=== PATIENT | female | born 1995 | race African-American/Black ===

== ENCOUNTER 2018-05-17 17:45 | Emergency (ER) | payer OTHER ==
[2018-05-17 19:04] LABS: Bilirubin Small (Negative); Blood, Urine Large (Negative); Clarity TURBID (Clear); Glucose, Urine (Dipstick) Negative (Negative); Leukocyte Moderate (Negative); Nitrite Positive (Negative); Protein, Urine (Dipstick) 300 mg/dL (Neg-Trace); Specific Gravity, Urine 1.032 (1.002-1.036)
[2018-05-17 19:05] LABS: Pregnancy Test - Urine (BHCG) Negative (Negative); Pregu Control Background? CLEAR/WHITE (CLR/WHITE); Pregu Control Bar Appear? YES (CONTROL BAR); Specific Gravity 1.032 (1.002-1.036)
[2018-05-17 19:07] LABS: Bacteria/HPF 1+ HPF (None Seen); RBC/HPF GREATER THAN 50-TNTC HPF (0-3)
[2018-05-17 19:08] LABS: Hyaline Casts/LPF 0-3 HYALINE CAST LPF (0-3 Hyaline); Manual Microscopic Reviewed? No Path Casts Seen; Pathc Cast-AUWi Flag 3.53 (0-2.49)
== END 2018-05-17 19:22 | disposition home or self-care (01) ==
LOC: ERS 17:45
DX: N39.0 Urinary tract infection, site not specified (principal)
CPT/HCPCS: 81003; 81015; 81025; 99283

== ENCOUNTER 2018-06-23 22:38 | Emergency (ER) | payer OTHER | END 2018-06-23 23:45 | disposition home or self-care (01) | LOC: ERS 22:38 | DX: N64.4 Mastodynia (principal) | CPT/HCPCS: 99283 ==

== ENCOUNTER 2018-07-29 10:54 | Emergency (ER) | payer OTHER ==
[2018-07-29 11:55] LABS: Bilirubin Negative (Negative); Blood, Urine Negative (Negative); Clarity CLOUDY (Clear); Glucose, Urine (Dipstick) Negative (Negative); Leukocyte Moderate (Negative); Nitrite Negative (Negative); Protein, Urine (Dipstick) Trace mg/dL (Neg-Trace); Specific Gravity, Urine 1.029 (1.002-1.036)
--- NOTE | 2018-07-29 11:55 | ULT ---
US Pelvic W Doppler HISTORY: Pelvic pain and cramping COMPARISON: None TECHNIQUE: Multiple grayscale and color Doppler images were obtained in a transabdominal and transvag inal pelvic ultrasound. Spectral analysis of the Doppler waveforms of the ovaries were performed. FINDINGS: There is an intrauterine gestation, which by sonographic imaging corresponds to a 6 week 1 day gestat ional age. cardiac activity is documented at 124 bpm. Gestational sac, with internal yolk sac and pole present No free fluid is present. RIGHT OVARY: Normal flow, without focal mass. LEFT OVARY: Normal flow, without focal mass. IMPRESSION: Early live intrauterine gestation, as above. Recommend continued age-appropriate imaging follow-up.
[2018-07-29 12:07] LABS: Bacteria/HPF 1+ HPF (None Seen); Pathc Cast-AUWi Flag 0.27 (0-2.49); RBC/HPF 0-3 HPF (0-3); Squamous Epithelial 0-3 HPF (0-3)
[2018-07-29 12:08] LABS: Hyaline Casts/LPF 0-3 HYALINE CAST LPF (0-3 Hyaline)
[2018-07-29 12:14] LABS: Hemoglobin 8.1 g/dL (12.0-16.0); Mean Corpuscular HGB CONC 29.8 g/dL (32.0-36.0); Mean Corpuscular Hemoglobin 19.7 pg (27.0-31.0); Mean Corpuscular Volume 66.3 fL (78.0-98.0); Mean Platelet Volume 11.4 fL (7.4-10.4); Platelet Count 268 thou/uL (130-400); RBC Distribution Width 17.8 % (11.5-14.5); Red Blood Cell (RBC) Count 4.09 mill/uL (4.20-5.40); White Blood Cell (WBC) Count 6.4 thou/uL (4.8-10.8)
[2018-07-29 12:47] LABS: #Lymphocytes 0.6 thou/uL (1.20-3.40); #Monocytes 0.4 thou/uL (0.11-0.59); #Neutrophils 5.4 thou/uL (1.40-6.50); %Basophils 0.3 % (0.0-1.0); %Eosinophils 0.1 % (0.0-10.0); %Lymphocytes 9.1 % (21.0-51.0); %Monocytes 6.5 % (0.0-10.0); %Neutrophils 84.1 % (42.0-75.0); Anisocytosis SLIGHT = 6-15 cells (100X) (0-5/hpf); Hypochromia SLIGHT = 6-15 cells (100X) (0-5/hpf); MDiff Complete? YES; Microcytosis SLIGHT = 6-15 cells (100X) (0-5/hpf); Platelet Morphology Comment Appears Adequate; Poikilocytosis SLIGHT = 6-15 cells (100X) (0-5/hpf)
== END 2018-07-29 13:25 | disposition home or self-care (01) ==
LOC: ERS 10:54
DX: O23.41 Unspecified infection of urinary tract in pregnancy, first trimester (principal); Z3A.01 Less than 8 weeks gestation of pregnancy
CPT/HCPCS: 36415; 76856; 81003; 81015; 84702; 85025; 86900; 86901; 93976

== ENCOUNTER 2018-10-01 11:42 | Day surgery (SDC) | payer OTHER ==
[2018-10-01] MEDS ORDERED: Acetaminophen 500 MG TAB PO SCH ×2 (12:15→12:30)
[2018-10-01 12:17] VITALS: BP 93/57; TEMP 98.9
[2018-10-01 12:18] VITALS: BMI 20.2
[2018-10-01] MEDS ORDERED: Iron Sucrose Complex 500 MG in Sodium Chloride 0.9% 250 ML 250 ML IVPB SCH (12:30)
--- NOTE | 2018-10-01 13:36 | PDOC.FPROB ---
FMR OB H&P: HPI - History of Present Illness Chief Complaint: Iron infusion Indentification: 23 year old at 15.0 wks by reported due date of 2019 History of Present Illness: 23 year old at 15.0 wks with reported DAPHNE 03/25/2019 presents for scheduled iron infusion. Patient reports that her Hg was around 7.5 in clinic. She reports no complications thus far in . Patient denies vaginal bleeding, vaginal discharge, LoF, abdominal pain. 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: Hx of chlamydia and gonorrhea in past s/p treatment Hx of D&C in 2016 - Surgical History Sx History: D&C - Social History Social History: Denies tobacco, alcohol, or drug use - Family History Family History: Denies any significant FH FMR OB H&P: Medications - Current Home Medications: Medication Instructions Recorded Confirmed Type Vit,Calc76/Iron/Folic 1 tablet PO DAILY 01/06/16 10/01/18 History [Prenatabs Rx Tablet] Allergies/Adverse Reactions: Allergies Allergy/AdvReac Type Severity Reaction Status Date / Time Latex, Natural Rubber AdvReac Mild Rash Verified 03/12/16 12:38 FMR OB H&P: ROS - Review of Systems General: denies: fever/chills, weight/appetite/sleep changes Eyes: denies: vision changes ENT: denies: nasal congestion, rhinorrhea Cardiovascular: denies: chest pain, edema Respiratory: denies: cough, congestion, shortness of breath Gastrointestinal: denies: abdominal pain, nausea, vomiting, diarrhea Genitourinary (Female): denies: dysuria, vaginal discharge, vaginal bleeding Musculoskeletal: denies: pain, stiffness Neurologic: denies: numbness, syncope, weakness Integumentary: denies: itching, lesions Hematologic/Lymphatic: denies: prolonged or excessive bleeding Psychological: denies: depression, anxiety FMR OB H&P: Vital Signs - Maternal Vital signs: Vital Signs - First Documented Temp Pulse Resp BP 98.9 F 81 16 93/57 L 10/01/18 12:04 10/01/18 12:04 10/01/18 12:04 10/01/18 12:04 FMR OB H&P: Physical Exam - Physical Exam General: NAD, awake, alert and oriented HEENT: EOMI, MMM, grossly normal vision, grossly normal hearing Heart: RRR, no murmurs/rubs/gallops General: CTAB, no respiratory distress Abdomen: soft, gravid, non-tender Musculoskeletal: pulses present, FROM in all four extremities Neurological: no tremor, no focal deficit Skin: no rash, capillary refill <2 seconds Lymphatic: no unusual bruising or bleeding Psychiatric: intact recent and remote memory, good judgement and insight FMR OB H&P: A/P - Problem List (1) Anemia affecting Status: Acute Code(s): O99.019 - ANEMIA COMPLICATING , UNSPECIFIED TRIMESTER Disposition: 23 year old at 15.0 wks presents for iron transfusion Anemia affecting - Hg reportedly appx 7.5 in clinic - Iron transfusion today - PO iron supplementation - Routine follow up at [facility] [place] Dispo: D/c home after iron transfusion Discussion: Date/Time: 10/01/18 3487 This H&P was discussed with Dr. Park who agrees with the above documentation and plan. Signature: Vani Smith DO PGY-3 Addendum - Attending - Attending Attestation Date/Time: 10/03/18 3542 I personally evaluated the patient and discussed the management with Dr. Smith on 10/01. I agree with the History, Examination, Assessment and Plan documented above with any addition or exceptions noted below.
[2018-10-01] MEDS ORDERED: Sodium Chloride 0.9% 1,000 ML IV SCH (13:45)
== END 2018-10-01 17:30 | disposition home health service (06) ==
LOC: L&D/OP 11:42
PROVIDERS: ATTEND Family Medicine
DX: O99.012 Anemia complicating pregnancy, second trimester (principal); Z87.59 Personal history of other complications of pregnancy, childbirth and the puerperium; Z3A.15 15 weeks gestation of pregnancy
CPT/HCPCS: 96361; 96365; 96366; 99282; J1756; J7050

== ENCOUNTER 2019-01-26 11:02 | Day surgery (SDC) | payer OTHER ==
[2019-01-26 11:26] VITALS: BMI 20.6
[2019-01-26] MEDS ORDERED: hydrALAZINE 20 MG/ML VIAL SLOW IVP PRN (12:33)
--- NOTE | 2019-01-26 13:00 | PDOC.LDHP ---
Labor and Delivery H&P Chief complaint: other (RUQ Pain) HPI: Ms. De Jesus is a 23 y/o who presents to L&D @ 31W dated by 1st trimester US for RUQ pain. She states that the pain is sharp in nature and has been intermittent for the past several weeks. It is often fleeting and lasts only a 1 -3 minutes before resolving spontaneously. She denies any radiation, and states that when she feels the pain she "wants to go to sleep". She denies being in pain at the time of evaluation. The pain is not associated with position or meals and typically resolves spontaneously. She has no prior history of gallbladder, pancreatic or appendix dysfunction. She denies any recent falls, trauma, heavy lifting, fevers, chills, N/V/D, anorexia, dysuria, known STI or vaginal lesions / pruritis. She states that she has not noticed a loss of movement and denies vaginal bleeding, or loss of fluids. Dating criteria: first trimester ultrasound Grav: 3 Para: 1 OB History Details: Hx significant for prior miscarriage "early in " Current complications: other (Anemia, previously received Iron Transfusion) Abnormal US findings: No Current medications: pre- vitamins, iron Previous surgical history: none Allergies/Adverse Reactions: Allergies Allergy/AdvReac Type Severity Reaction Status Date / Time Latex, Natural Rubber AdvReac Mild Rash Verified 01/26/19 11:27 Social history: none - Physical Exam General: NAD, resting Heart: RRR Lungs: nonlabored breathing Abdomen: NTTP Extremeties: no edema FHT: category 1, variability present Stebbins contractions every: None seen on rhythm strip - OB Labs Blood type: unknown RH: unknown Antibody Screen: unknown HIV: negative RPR: negative HEPSAg: negative GBS: unknown Urine drug screen: not done Additional Labs: CBC, CMP and UA pending - Assessment 23 y/o female who presents to L&D @ 31W by 1st trimester US with sub-acute RUQ. - Plan Plan: other -: 1. RUQ Pain, likely MSK -Patient is currently not in pain while on L&D -HPI and ROS not indicative of gallbladder, appendix or pancreatic dysfunction -Maternal VSS with unremarkable physical exam - negative Guzman's sign, negative CVA tenderness, no TTP -FHTs in the 150s with no decels or CTX - no loss of fluid or vaginal bleeding -CBC: Pending -CMP: Pending -UA: Pending -Continue to monitor maternal and vital signs Dispo: Patient is currently stable on L&D with monitors on. Await lab results and plan for DC if no etiology of RUQ can be identified. Likelihood of pre-term labor, pancreatitis, cholecystitis, appendicitis and HELLP Syndrome appears low at this point. Expected LOS < 4H. Addendum - Attending - Attending Attestation Date/Time: 01/27/19 6811 I personally evaluated the patient and discussed the management with Dr. Gleason. I agree with the History, Examination, Assessment and Plan documented above with any addition or exceptions noted below. Patient with no pain currently, and low suspicion for pancreatitis, cholelithiasis, appendicitis, renal colic, abruption, HELLP, etc. She has a negative guzman's, is NTTP, no CVAT. Plan for labs and likely d/c. Discussed plan with patient and she voiced understanding and agreement.
[2019-01-26 13:03] LABS: Bilirubin Negative (Negative); Blood, Urine Negative (Negative); Clarity Clear (Clear); Glucose, Urine (Dipstick) Normal (Negative); Leukocyte 250 Leu/uL (Negative); Nitrite Negative (Negative); Protein, Urine (Dipstick) 30 mg/dL (Neg-Trace); RBC/HPF 0-3 HPF (0-3); Urobilinogen 6 mg/dL (Less than 2)
[2019-01-26 13:04] LABS: #Lymphocytes 1.6 thou/uL (1.20-3.40); #Monocytes 0.6 thou/uL (0.11-0.59); #Neutrophils 5.8 thou/uL (1.40-6.50); %Basophils 0.4 % (0.0-1.0); %Eosinophils 0.5 % (0.0-10.0); %Monocytes 7.8 % (0.0-10.0); %Neutrophils 71.3 % (42.0-75.0); Mean Corpuscular HGB CONC 32.7 g/dL (32.0-36.0); Mean Corpuscular Hemoglobin 27.2 pg (27.0-31.0); Mean Corpuscular Volume 83.1 fL (78.0-98.0); Mean Platelet Volume 8.6 fL (7.4-10.4); Platelet Count 250 thou/uL (130-400); RBC Distribution Width 15.3 % (11.5-14.5); Red Blood Cell (RBC) Count 3.33 mill/uL (4.20-5.40); White Blood Cell (WBC) Count 8.1 thou/uL (4.8-10.8)
[2019-01-26 13:05] LABS: Bacteria/HPF 1+ HPF (None Seen)
[2019-01-26 13:06] LABS: Urine Culture Reflex No No
[2019-01-26 13:25] LABS: ALT (SGPT) 7 U/L (8-55); AST (SGOT) 17 U/L (5-34); Albumin 3.2 g/dL (3.5-5.0); Alkaline Phosphatase 91 U/L (40-110); Anion Gap 10 mmol/L (10-20); BUN (Urea Nitrogen) 6 mg/dL (7.0-18.7); Bilirubin, Total 0.4 mg/dL (0.2-1.2); Calc. Creatinine Clearance 114 mL/min (70-130); Calcium 8.7 mg/dL (7.8-10.44); Carbon Dioxide 24 mmol/L (22-29); Chloride 107 mmol/L (98-107); Estimated GFR-MDRD Greater than 90; Globulin 3.2 g/dL (2.4-3.5); Glucose 91 mg/dL (70-105); Potassium 3.7 mmol/L (3.5-5.1); Protein, Total 6.4 g/dL (6.0-8.3); Sodium 137 mmol/L (136-145)
[2019-01-26 17:45] LABS: Iron 26 ug/dL (50-170); Iron Binding Capacity, Total 581 mcg/dL (265-497)
--- NOTE | 2019-01-26 21:41 | PDOC.EVN ---
Event Note - Event Note Event Note: Labs only significant for Hgb 9.0, with Fe and TIBC revealing iron deficiency anemia. UA was a dirty catch. Patient was discharged to home with iron supplementation, and will follow up with PCP for continued management of her .
--- NOTE | 2019-01-28 20:06 | DIS ---
DATE OF ADMISSION: 01/26/2019 DATE OF DISCHARGE: 01/26/2019 RESIDENT: Zohaib Gleason MD ADMITTING ATTENDING: Olvin Park MD DISCHARGE ATTENDING: Olvin Park MD. CONSULTS: None. PROCEDURES: None. PRIMARY DIAGNOSIS: Musculoskeletal pain. SECONDARY DIAGNOSES: , history of chlamydia infection, anemia affecting . DISCHARGE MEDICATIONS: Iron 100/vitamin-C tablets to be taken one tab every other day for 60 days. DISCONTINUED MEDICATIONS: Hydralazine 5 mg. HISTORY OF PRESENT ILLNESS AND HOSPITAL COURSE: Ms. De Jesus is a 23-year-old, G3, P1-0-1-1, who presented to L and D at 31 weeks dated by first trimester ultrasound for right upper quadrant pain. She stated the pain was sharp in nature, but intermittent for the past several weeks. It was often fleeting and lasting only a minute or two before resolving spontaneously, but denied any radiation. Stated that when she feels the pain, she wanted to "go to sleep." She denied being in pain at the time of evaluation. The pain is not associated position or meals and typically resolves spontaneously. She has no prior history of gallbladder, pancreatic or appendix dysfunction. She denies any recent falls, trauma, heavy lifting, fevers, chills, nausea, vomiting, diarrhea, hematuria, dysuria, known STIs, vaginal lesions, or pruritus. She states that she had not noticed the loss of movement. Denied vaginal bleeding or loss of fluids. As such, she was monitored on Labor and delivery floor for approximately 4 hours, in which her vital signs as well as vital signs were recorded. Maternal vital signs remained stable with an unremarkable physical exam, negative Guzman sign, negative CVA tenderness, no tenderness to palpation in the right upper quadrant. heart tones remained in the 150s with no decelerations or contractions. There was no loss of fluid or vaginal bleeding noted. Laboratory analysis revealed a white blood cell count of 8.1, hemoglobin 9, hematocrit 27.7, platelet count 250. Sodium 137, potassium 3.7, chloride 107, carbon dioxide 24, anion gap 10, BUN 6, creatinine 0.69, glucose 91, calcium 8.7. Iron 26, total iron-binding capacity 581, AST 17, ALT 7. Urinalysis revealed a normal amount of urine glucose and was negative for ketones, blood, nitrite, or bilirubin. As common causes of right upper quadrant pain were subsequently ruled out to include appendicitis, cholecystitis, pancreatitis, and vital signs within normal limits, the patient was subsequently prepped for discharge. The patient did not appear to be in active labor and felt comfortable going home with appropriate followup with her primary care provider. DISPOSITION: Stable. DISCHARGE INSTRUCTIONS: 1. Location: Home. 2. Diet: No restrictions. 3. Activity: No restrictions. 4. Followup: The patient was encouraged to follow up with her primary care physician in one week in order to discuss her most recent hospitalization. Job ID: [id number] MTDD
== END 2019-01-26 15:28 | disposition home or self-care (01) ==
LOC: L&D/OP 11:02
PROVIDERS: ATTEND Family Medicine
DX: O99.89 Other specified diseases and conditions complicating pregnancy, childbirth and the puerperium (principal); R10.11 Right upper quadrant pain; O09.293 Supervision of pregnancy with other poor reproductive or obstetric history, third trimester; O99.013 Anemia complicating pregnancy, third trimester; D50.9 Iron deficiency anemia, unspecified; Z3A.31 31 weeks gestation of pregnancy; Z79.899 Other long term (current) drug therapy; Z91.040 Latex allergy status; Z91.048 Other nonmedicinal substance allergy status
CPT/HCPCS: 36415; 80053; 81001; 83540; 83550; 85025; 87086; 99283

== ENCOUNTER 2019-02-07 14:13 | Inpatient (IN) | payer OTHER ==
[2019-03-21] MEDS ORDERED: hydrALAZINE 20 MG/ML VIAL SLOW IVP PRN (21:51)
[2019-03-21] MEDS ORDERED: Ondansetron PF 4 MG/2 ML Vial IVP PRN (21:51)
[2019-03-21] MEDS ORDERED: Ibuprofen 800 MG TAB PO PRN (21:51)
[2019-03-21] MEDS ORDERED: Docusate 100 MG CAP PO PRN (21:51)
[2019-03-21] MEDS ORDERED: Promethazine HCl 25 MG/ML VIAL IM PRN (21:51)
[2019-03-21] MEDS ORDERED: Butorphanol Tartrate 1 MG/ML VIAL SLOW IVP PRN (21:51)
[2019-03-21] MEDS ORDERED: Lidocaine 1% (PF) 30 ML VIAL SC PRN (21:51)
--- NOTE | 2019-03-21 21:51 | PDOC.FPROB ---
FMR OB H&P: HPI - History of Present Illness Chief Complaint: IOL History of Present Illness: Pt is a 23 yo at 39.3 weeks by LMP c/w 8.5 wk u/s, DAPHNE 03/25/19, who presents for induction of labor. She initially presented and wanted a natural without medication supplementation but after discussion patient decided to proceed with induction of labor. She denies contractions, loss of fluid, vaginal bleeding, fever, chills. She does not want an epidural. Her most last check in the outpt setting was 3 cm. This has been complicated by anemia requiring iron supplementation and an iron transfusion, minimal weight gain. Otherwise patient states she has no other complications. 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 - Surgical History Sx History: D&C - Social History Social History: Denies alcohol, tobacco, drug use - Family History Family History: Non-contributory FMR OB H&P: Medications - Current Allergies/Adverse Reactions: Allergies Allergy/AdvReac Type Severity Reaction Status Date / Time Latex, Natural Rubber AdvReac Mild Rash Verified 01/26/19 11:27 FMR OB H&P: ROS - Review of Systems General: denies: fever/chills, weight/appetite/sleep changes ENT: denies: nasal congestion, rhinorrhea Cardiovascular: denies: chest pain, edema Respiratory: denies: cough, congestion Gastrointestinal: denies: abdominal pain, cramping, nausea, vomiting, diarrhea, constipation Genitourinary (Female): denies: incontinence, dysuria, vaginal discharge, vaginal bleeding, contractions Musculoskeletal: denies: pain, stiffness Neurologic: denies: numbness, weakness FMR OB H&P: Vital Signs - Heart Tones Baseline: 160 Variability: moderate Acceleration: present Deceleration: absent FMR OB H&P: Physical Exam - Physical Exam General: NAD, awake, alert and oriented HEENT: normocephalic and atraumatic, PERRLA, EOMI Neck: no LAD, no JVD Chest: non-tender to palpation Heart: RRR, normal S1/S2 General: CTAB, no respiratory distress Abdomen: soft, gravid, non-tender, bowel sound present Musculoskeletal: normal gait and station, pulses present Neurological: cranial nerves II through XII intact, sensation to pain,touch and proprioception grossly normal Skin: no rash, capillary refill <2 seconds Lymphatic: no purpura, no petechia Psychiatric: good judgement and insight - Pelvic Exam SVE: 3/60/-2 Gan score: 7 Membranes: Intact FMR OB H&P: A/P - Problem List (1) Anemia affecting Status: Acute Code(s): O99.019 - ANEMIA COMPLICATING , UNSPECIFIED TRIMESTER (2) Term Status: Acute Code(s): Z34.80 - ENCOUNTER FOR SUPRVSN OF NORMAL , UNSP TRIMESTER Discussion: Date/Time: 03/21/192145 Pt is a 23 yo at 39.3 weeks who presents for elective induction of labor : # Term Hx of 1 prior vaginal delivery w/o complications. Membranes intact. Denies contractions. 3cm/60%/-2. FHT's 160, moderate variability, accels present, no decels. Gan 7. - administering 1 dose of cytotec then will start pitocin augmentation. - next check due at 0030 on 03/22/19. # Anemia of Hx of iron transfusion during , oral iron supplementation - pending CBC # Low weight gain - pt noted in clinic notes to be down 1 pound during PCP: NATALIYA Kimble This H&P was discussed with Dr. Park and Dr. Fitzpatrick who agree with the above documentation and plan. Addendum - Attending - Attending Attestation Date/Time: 03/22/19 0804 I personally evaluated the patient and discussed the management with Dr. Balderas and Amari. I agree with the History, Examination, Assessment and Plan documented above with any addition or exceptions noted below.
[2019-03-21] MEDS ORDERED: Misoprostol 100 MCG TAB VAG SCH (22:00)
[2019-03-21] MEDS ORDERED: NS w/ Oxytocin 10 units 500 ML IV SCH ×2 (22:00)
[2019-03-21] MEDS ORDERED: Lactated Ringer's 1,000 ML IV SCH (22:00)
[2019-03-21] MEDS ORDERED: diphenhydrAMINE 25 MG CAP PO PRN (22:02)
[2019-03-21 22:17] VITALS: BMI 21.2
[2019-03-21 22:32] LABS: Hemoglobin 8.6 g/dL (12.0-16.0); Mean Corpuscular Hemoglobin 23.3 pg (27.0-31.0); Mean Corpuscular Volume 72.9 fL (78.0-98.0); Mean Platelet Volume 9.8 fL (7.4-10.4); Platelet Count 229 thou/uL (130-400); RBC Distribution Width 16.5 % (11.5-14.5); Red Blood Cell (RBC) Count 3.68 mill/uL (4.20-5.40); White Blood Cell (WBC) Count 9.2 thou/uL (4.8-10.8)
[2019-03-21 23:14] LABS: Syphilis Antibody Nonreactive (Nonreactive); Syphilis Antibody Index 0.06 S/CO (<1.00 Non-Reactive)
[2019-03-21 23:26] LABS: HBSAg Index 0.26 S/CO (0-0.99); Hep B Surf Ag Non-Reactive S/CO (NonReactive)
[2019-03-22] MEDS: NS / Oxytocin 40 units/1000ml 1,000 ML IV PRN ×2 (03:00→04:06)
--- NOTE | 2019-03-22 03:09 | PDOC.OPDEL ---
OB Operative/Delivery Note Delivery Dr/Surgeon: Amari/Sherrie; Attending: Xavier Pre-Delivery Diagnosis: elective induction Procedure/Post Delivery Dx: spontaneous vaginal delivery Anesthesia: none - Additional Findings/Plan Placenta delivered: spontaneous Repaired Obstetrical Laceration: 1st degree Estimated blood loss: 310 Compilations/Other Findings: This is 23 yo F G3 now P2012 @ 39.4 wks who delivered a viable F infant at 0245 on 03/23/19. Following an uneventful antepartum course, a vigorous female was delivered over an intact perineum in the occipitoanterior position. Anterior Shoulder and then remainder of the body delivered. No nuchal cord. The head was held down and mouth and nares were bulb suctioned. Cord clamped after delayed cord clamping and cut and cord blood collected. Placenta delivered intact in the Dickson presentation with a 3 vessel cord noted. Fundal massage was performed and the fundus was firm. The cervix and vagina were inspected and first degree laceration achieved hemostasis without repair. went to nursery in good condition for routine care. Apgars were 9/9 at 1 & 5 minutes, respectively. Patient tolerated delivery well and went to after routine recovery/care. René Balderas, DO 03/22/19 Post delivery plan: routine recovery Addendum - Attending - Attending Attestation Date/Time: 03/23/19 1023 I was present for the entire delivery. First degree, hemostatic and well approximated.
[2019-03-22] MEDS ORDERED: Milk Of Magnesia 30 ML UDCUP PO PRN (05:14)
[2019-03-22] MEDS ORDERED: Lanolin Ointment 7 GM TUBE TOP PRN (05:14)
[2019-03-22] MEDS ORDERED: NS / Oxytocin 40 units/1000ml 1,000 ML IV SCH (05:14)
[2019-03-22] MEDS ORDERED: hydrALAZINE 20 MG/ML VIAL SLOW IVP PRN (05:14)
[2019-03-22] MEDS ORDERED: Bisacodyl 10 MG SUPP PR PRN (05:14)
[2019-03-22] MEDS: Ibuprofen 800 MG TAB PO SCH ×3 (07:02→23:09)
[2019-03-22] MEDS ORDERED: Adacel (T-DAP) 0.5 ML SYRINGE IM ONE (09:00)
[2019-03-22] MEDS: Prenatal Vitamin 1 TAB PO SCH (09:56)
[2019-03-22] MEDS: Ferrous Sulfate 325 MG TAB PO SCH ×2 (09:56→17:34)
[2019-03-22] MEDS: Docusate Calcium (SURFAK) 240 MG CAP PO SCH ×2 (09:56→21:29)
[2019-03-23 06:12] LABS: #Basophils 0.1 thou/uL (0.0-0.2); #Eosinphils 0.1 thou/uL (0.0-0.7); #Lymphocytes 2.8 thou/uL (1.20-3.40); #Monocytes 0.8 thou/uL (0.11-0.59); #Neutrophils 5.9 thou/uL (1.40-6.50); %Basophils 0.6 % (0.0-1.0); %Lymphocytes 29.3 % (21.0-51.0); %Neutrophils 61.2 % (42.0-75.0); Hemoglobin 7.7 g/dL (12.0-16.0); Mean Corpuscular HGB CONC 31.3 g/dL (32.0-36.0); Mean Corpuscular Hemoglobin 23.2 pg (27.0-31.0); Mean Corpuscular Volume 74.2 fL (78.0-98.0); Mean Platelet Volume 9.2 fL (7.4-10.4); Platelet Count 211 thou/uL (130-400); RBC Distribution Width 16.4 % (11.5-14.5); Red Blood Cell (RBC) Count 3.32 mill/uL (4.20-5.40); White Blood Cell (WBC) Count 9.6 thou/uL (4.8-10.8)
--- NOTE | 2019-03-23 06:21 | PDOC.OBPPN ---
FMR OB PN: Subj - Interval History Day: 03 [age] y/o @ 39.4 WGA delivered via @ 0245 on 03/22/19. Patient doing well. Denies any complaints today. She reports ambulating, voiding , passing flatus, tolerating PO. Reports minimal abdominal pain and minimal lochia. She is breast and bottle feeding. She denies F/C, H/A, chest pain, dizziness FMR OB PN: Obj - Maternal Vital signs: BP: 104/56 HR: 86 RR: 16 Tmax: 98.5 Pox: 99% on RA Wt: 58.06kg - Urine output I&O: 03/21/19 03/22/19 03/23/19 06:59 06:59 06:59 Intake Total 125 1000 Output Total 396 Balance -271 1000 FMR OB PN: Exam - Physical Exam General: NAD, awake, alert and oriented HEENT: MMM, conjunctiva clear, grossly normal vision, grossly normal hearing Neck: supple, FROM Heart: RRR, normal S1/S2, no murmurs/rubs/gallops, pulses present, no edema General: CTAB, no respiratory distress, good air movement, no rales/rhonchi, no wheezing Abdomen: soft, fundus(cm) (firm below umbilicus), non-tender, bowel sound present Musculoskeletal: pulses present, FROM in all four extremities Neurological: no focal deficit Skin: no rash, good tugor, capillary refill <2 seconds Lymphatic: no unusual bruising or bleeding, no purpura Psychiatric: intact recent and remote memory, good judgement and insight FMR OB PN: Data - Labs Lab results: Laboratory Results - last 24 hr 03/23/19 05:49 WBC 9.6 RBC 3.32 L Hgb 7.7 L Hct 24.6 L MCV 74.2 L MCH 23.2 L MCHC 31.3 L RDW 16.4 H Plt Count 211 MPV 9.2 Neutrophils % 61.2 Neutrophils % (Manual) Not Reportable Lymphocytes % 29.3 Monocytes % 8.0 Eosinophils % 1.0 Basophils % 0.6 Neutrophils # 5.9 Lymphocytes # 2.8 Monocytes # 0.8 H Eosinophils # 0.1 Basophils # 0.1 FMR OB PN: A/P - Problem List (1) Term delivered Current Visit: Yes Status: Acute Code(s): O80 - ENCOUNTER FOR FULL-TERM UNCOMPLICATED DELIVERY (2) Anemia affecting Current Visit: No Status: Acute Code(s): O99.019 - ANEMIA COMPLICATING , UNSPECIFIED TRIMESTER Disposition: 1. Term delivered -Continue routine care -PNV -Ibuprofen for pain -Encourage ambulation -Encourage breast feeding 2. Anemia affecting Hb 7.7 -Continue iron Discussion: Date/Time: 03/23/19 0619 This H&P was discussed with Dr. Jimenes who agrees with the above documentation and plan. Signature: Nahomi Kimble MD, PGY-3 Addendum - Attending - Attending Attestation Date/Time: 03/23/19 4008 I personally evaluated the patient and discussed the management with Dr. Kimble. I agree with the History, Examination, Assessment and Plan documented above with any addition or exceptions noted below.
[2019-03-23] MEDS: Ibuprofen 800 MG TAB PO SCH ×2 (09:56→13:16)
[2019-03-23] MEDS: Ferrous Sulfate 325 MG TAB PO SCH ×2 (09:57→17:44)
[2019-03-23] MEDS: Prenatal Vitamin 1 TAB PO SCH (09:58)
[2019-03-23] MEDS: Docusate Calcium (SURFAK) 240 MG CAP PO SCH (09:58)
[2019-03-24] MEDS: Ibuprofen 800 MG TAB PO SCH ×2 (00:05→08:54)
[2019-03-24] MEDS: Docusate Calcium (SURFAK) 240 MG CAP PO SCH ×2 (00:05→08:53)
--- NOTE | 2019-03-24 07:20 | PDOC.OBPPN ---
FMR OB PN: Subj - Interval History Day: 2 23 y/o @ 39.4 WGA delivered via @ 0245 on 03/22/19. Patient doing well. Denies any complaints today. She reports ambulating, voiding , passing flatus, tolerating PO. Reports minimal abdominal pain and minimal lochia. She is breast and bottle feeding. She denies F/C, H/A, chest pain, dizziness FMR OB PN: Obj - Maternal Vital signs: BP: 111/58 HR: 95 RR: 16 Tmax: 98.4 Pox: 99% on RA Wt: 58kg - Urine output I&O: 03/23/19 03/24/19 03/25/19 06:59 06:59 06:59 Intake Total 1000 1200 Balance 1000 1200 FMR OB PN: Exam - Physical Exam General: NAD, awake, alert and oriented HEENT: MMM, conjunctiva clear, grossly normal vision, grossly normal hearing Neck: supple, FROM Heart: pulses present, no edema General: no respiratory distress Abdomen: soft, fundus(cm) (firm below umbilicus), non-tender Musculoskeletal: pulses present, FROM in all four extremities Neurological: no focal deficit Skin: good tugor, capillary refill <2 seconds Lymphatic: no unusual bruising or bleeding, no purpura Psychiatric: intact recent and remote memory, good judgement and insight FMR OB PN: A/P - Problem List (1) Term delivered Current Visit: Yes Status: Acute Code(s): O80 - ENCOUNTER FOR FULL-TERM UNCOMPLICATED DELIVERY (2) Anemia affecting Current Visit: No Status: Acute Code(s): O99.019 - ANEMIA COMPLICATING , UNSPECIFIED TRIMESTER Disposition: 1. Term delivered -Continue routine care -PNV -Ibuprofen for pain -Encourage ambulation -Encourage breast feeding 2. Anemia affecting Hb 7.7 -Continue iron d/c home today Discussion: Date/Time: 03/24/19 0718 This H&P was discussed with Dr. Jimenes who agrees with the above documentation and plan. Signature: Nahomi Kimble MD, PGY-3 Addendum - Attending - Attending Attestation Date/Time: 03/24/19 1035 I personally evaluated the patient and discussed the management with Dr. Kimble. I agree with the History, Examination, Assessment and Plan documented above with any addition or exceptions noted below.
[2019-03-24 08:01] VITALS: BP 86/56; TEMP 98.3
[2019-03-24] MEDS: Ferrous Sulfate 325 MG TAB PO SCH (08:53)
[2019-03-24] MEDS: Prenatal Vitamin 1 TAB PO SCH (08:53)
--- NOTE | 2019-03-27 05:14 | PQF ---
[employer] Supervisor [employer] Crystal Reports [facility] BOBBI Altamirano DEVIKA AG [id number] CLINICAL DOCUMENTATION CLARIFICATION FORM: POST DISCHARGE Addendum to original discharge summary date: ____ Late entry note date: __ DATE: 03/27/2019 ATTN:DEVIKA AG Please exercise your independent, professional judgment in responding to the clarification form. Clinical indicators are provided on the bottom of this form for your review Please check appropriate box(s): [ ] Acute blood loss anemia [ ] Post-op anemia related to acute blood loss [ ] Chronic Anemia [ ] Other diagnosis acute on chronic anemia [ ] Unable to determine In addition, please specify: Present on Admission (POA): [ ] Yes [ ] No [ ] Unable to determine For continuity of documentation, please document condition throughout progress notes and discharge summary. Thank You. CLINICAL INDICATORS - SIGNS / SYMPTOMS / LABS HGB 8.6 on 03/21 and 7.7 on 03/23 - Documented in Laboratory HCT 26.8 on 03/21 and 24.6 on 03/23 - Documented in Laboratory Blood Pressure 99/50 on 03/22 and 86/56 on 03/24- Documented on Vital signs Anemia affecting - Documented in OB H&P on 03/21 by Sherrie Ro RISK FACTORS 1st degree Laceration - Documented in OB L&D note Estimated Blood loss 310ml - Documented in OB L&D note Spontaneous Vaginal Delivery - Documented in OB L&D note TREATMENTS: Continue Iron - Documented in OB Pns on 03/24 by Lamin Comer Ferrous sulfate 325mg - Documented in Medication report (This form is maintained as a part of the permanent medical record) 2014 [employer] [place], [employer]. All Rights Reserved [email or web address] [phone] [email or web address]
== END 2019-03-24 12:10 | disposition home or self-care (01) | DRG 806 ==
LOC: L&D 03-21 19:31 → 3SW 03-22 05:44 → EDSTATUS 03-25 15:42
PROVIDERS: ADMIT Emergency Medicine; ATTEND Emergency Medicine
PROC: 10E0XZZ Delivery of Products of Conception, External Approach (ICD-10-PCS; principal; 2019-03-23)
PROC: 3E033VJ Introduction of Other Hormone into Peripheral Vein, Percutaneous Approach (ICD-10-PCS; 2019-03-23)
DX: O99.02 Anemia complicating childbirth (principal); D62 Acute posthemorrhagic anemia; Z37.0 Single live birth; O26.13 Low weight gain in pregnancy, third trimester; O70.0 First degree perineal laceration during delivery; Z3A.39 39 weeks gestation of pregnancy
CPT/HCPCS: 36415; 85025; 85027; 86780; 86850; 86900; 86901; 86905; 87340

== ENCOUNTER 2020-02-02 15:32 | Emergency (ER) | payer OTHER ==
[2020-02-02 18:15] LABS: #Basophils 0.1 thou/uL (0.0-0.2); #Lymphocytes 1.4 thou/uL (1.20-3.40); #Monocytes 0.5 thou/uL (0.11-0.59); #Neutrophils 13.3 thou/uL (1.40-6.50); %Basophils 0.4 % (0.0-1.0); %Eosinophils 0.1 % (0.0-10.0); %Lymphocytes 9.3 % (21.0-51.0); %Monocytes 3.3 % (0.0-10.0); %Neutrophils 86.9 % (42.0-75.0); Hemoglobin 10.5 g/dL (12.0-16.0); Mean Corpuscular HGB CONC 28.3 g/dL (32.0-36.0); Mean Corpuscular Hemoglobin 17.9 pg (27.0-31.0); Mean Corpuscular Volume 63.2 fL (78.0-98.0); Mean Platelet Volume 11.8 fL (7.4-10.4); Platelet Count 609 thou/uL (130-400); RBC Distribution Width 18.7 % (11.5-14.5); Red Blood Cell (RBC) Count 5.88 mill/uL (4.20-5.40); White Blood Cell (WBC) Count 15.3 thou/uL (4.8-10.8)
[2020-02-02 18:28] LABS: Anisocytosis SLIGHT = 6-15 cells (100X) (0-5/hpf); Hypochromia MODERATE=16-30 cells (100X) (0-5/hpf); MDiff Complete? YES; Microcytosis SLIGHT = 6-15 cells (100X) (0-5/hpf); Ovalocytes SLIGHT = 2-5 cells (100X) (0-1/hpf); Platelet Morphology Comment Appears Increased; Poikilocytosis SLIGHT = 6-15 cells (100X) (0-5/hpf); Polychromasia MODERATE = 3-4 cells (100X) (0-2/hpf); Reflex for Review?? YES; Target Cells MODERATE= 6-15 cells (100X) (0-1/hpf)
[2020-02-02 18:34] LABS: ALT (SGPT) 10 U/L (8-55); AST (SGOT) 25 U/L (5-34); Albumin 4.5 g/dL (3.5-5.0); Alkaline Phosphatase 100 U/L (40-110); Anion Gap 19 mmol/L (10-20); BUN (Urea Nitrogen) 10 mg/dL (7.0-18.7); Bilirubin, Total 0.2 mg/dL (0.2-1.2); Calc. Creatinine Clearance 0 mL/min (70-130); Calcium 9.3 mg/dL (7.8-10.44); Carbon Dioxide 19 mmol/L (22-29); Chloride 106 mmol/L (98-107); Globulin 3.8 g/dL (2.4-3.5); Glucose 121 mg/dL (70-105); Potassium 3.7 mmol/L (3.5-5.1); Protein, Total 8.3 g/dL (6.0-8.3); Sodium 140 mmol/L (136-145)
== END 2020-02-02 20:15 | disposition home or self-care (01) ==
LOC: ERS 15:32
DX: I95.1 Orthostatic hypotension (principal); D64.9 Anemia, unspecified
CPT/HCPCS: 36415; 80053; 85025; 85060; 93005; 94760

== ENCOUNTER 2020-07-19 13:19 | Emergency (ER) ==
[2020-07-19 14:02] LABS: #Basophils 0.1 thou/uL (0.0-0.2); #Lymphocytes 2.4 thou/uL (1.20-3.40); #Monocytes 0.4 thou/uL (0.11-0.59); #Neutrophils 2.7 thou/uL (1.40-6.50); %Basophils 1.2 % (0.0-1.0); %Eosinophils 0.7 % (0.0-10.0); %Lymphocytes 42.9 % (21.0-51.0); %Monocytes 6.8 % (0.0-10.0); %Neutrophils 48.4 % (42.0-75.0); Hemoglobin 10.1 g/dL (12.0-16.0); Mean Corpuscular HGB CONC 32.5 g/dL (32.0-36.0); Mean Corpuscular Hemoglobin 25.8 pg (27.0-31.0); Mean Corpuscular Volume 79.4 fL (78.0-98.0); Mean Platelet Volume 9.6 fL (7.4-10.4); Platelet Count 278 thou/uL (130-400); RBC Distribution Width 17.6 % (11.5-14.5); Red Blood Cell (RBC) Count 3.93 mill/uL (4.20-5.40); White Blood Cell (WBC) Count 5.6 thou/uL (4.8-10.8)
[2020-07-19 14:19] LABS: BHCG - Serum POSITIVE (NEGATIVE); Pregs Control Background? CLEAR/WHITE (CLR/WHITE); Pregs Control Bar Appear? YES (CONTROL BAR)
[2020-07-19 14:31] LABS: ALT (SGPT) 8 U/L (8-55); AST (SGOT) 21 U/L (5-34); Albumin 4.4 g/dL (3.5-5.0); Alkaline Phosphatase 72 U/L (40-110); Anion Gap 13 mmol/L (10-20); BUN (Urea Nitrogen) 7 mg/dL (7.0-18.7); Bilirubin, Total 0.4 mg/dL (0.2-1.2); Calc. Creatinine Clearance 0 mL/min (70-130); Calcium 9.2 mg/dL (7.8-10.44); Carbon Dioxide 22 mmol/L (22-29); Chloride 106 mmol/L (98-107); Globulin 3.2 g/dL (2.4-3.5); Glucose 81 mg/dL (70-105); Potassium 3.6 mmol/L (3.5-5.1); Protein, Total 7.6 g/dL (6.0-8.3); Sodium 137 mmol/L (136-145)
== END 2020-07-19 16:06 | disposition home or self-care (01) ==
LOC: ERS 13:19
DX: O20.0 Threatened abortion (principal); Z3A.10 10 weeks gestation of pregnancy
CPT/HCPCS: 36415; 76856; 80053; 84702; 84703; 85025; 93976